=== PATIENT | female | born 1995 | race Two or more races ===

== ENCOUNTER 2017-04-29 10:42 | Inpatient (IN) | payer MEDICAID ==
[2017-04-29 11:15] LABS: AMNISURE (ROM) POSITIVE (NEGATIVE)
[2017-04-29 11:17] LABS: APPEARANCE,URINE CLOUDY; BILIRUBIN,URINE NEGATIVE (NEGATIVE); GLUCOSE, URINE NEGATIVE (NEGATIVE); KETONES,URINE NEGATIVE (NEGATIVE); LEUKOCYTE ESTERASE,URINE SMALL (NEGATIVE); NITRITE,URINE NEGATIVE (NEGATIVE); PROTEIN,URINE NEGATIVE (NEGATIVE); URINE SPECIFIC GRAVITY 1.008; UROBILINOGEN,URINE NEGATIVE mg/dL (<2.0)
[2017-04-29] MEDS ORDERED: RINGERS SOLUTION,LACTATED 300 ML IV ONE (11:29)
[2017-04-29] MEDS ORDERED: OXYTOCIN/NORMAL SALINE 20 UNIT/1,000 ML RTUINJ IV PRN ×2 (11:29→17:02)
[2017-04-29 11:57] LABS: ABSOLUTE LYMPHOCYTES (AUTO) 1.5 10^3/uL (0.5-4.7); ABSOLUTE MONOCYTES (AUTO) 0.4 10^3/uL (0.1-1.4); ABSOLUTE NEUT (AUTO) 5.1 10^3/uL (1.7-8.2); BASOPHILS % (AUTO) 0.3 % (0-2); EOSINOPHILS % (AUTO) 0.5 % (0-6); HEMATOCRIT 31.7 % (36.0-47.0); HEMOGLOBIN 10.9 g/dL (12.0-15.5); LYMPHOCYTES % (AUTO) 21.8 % (13-45); MEAN CORPUSCULAR HEMOGLOBIN 29.7 pg (27.0-33.4); MEAN CORPUSCULAR HGB CONC 34.2 g/dL (32.0-36.0); MEAN CORPUSCULAR VOLUME 87 fl (80-97); RED BLOOD COUNT 3.65 10^6/uL (3.72-5.28); RED CELL DISTRIBUTION WIDTH 13.5 % (11.5-14.0); SEGMENTED NEUTROPHILS % (AUTO) 72.4 % (42-78); WHITE BLOOD COUNT 7.1 10^3/uL (4.0-10.5)
[2017-04-29 11:58] LABS: URINE BARBITURATES SCREEN NEGATIVE; URINE METHADONE SCREEN NEGATIVE; URINE OPIATES LOW NEGATIVE; URINE PHENCYCLIDINE SCREEN NEGATIVE
[2017-04-29 12:11] LABS: ALANINE AMINOTRANSFERASE 35 U/L (5-35); ALKALINE PHOSPHATASE 382 U/L (50-135); ANION GAP 10 (5-19); ASPARTATE AMINO TRANSFERASE 36 U/L (5-30); BILIRUBIN,DIRECT 0.4 mg/dL (0.0-0.4); BILIRUBIN,TOTAL 0.8 mg/dL (0.2-1.3); BLOOD UREA NITROGEN 5 mg/dL (7-20); CALCIUM 9.4 mg/dL (8.4-10.2); CARBON DIOXIDE 23 mmol/L (22-30); CHLORIDE 104 mmol/L (98-107); CREATININE RESULT 0.56 mg/dL (0.52-1.25); GLUCOSE 81 mg/dL (75-110); POTASSIUM 3.6 mmol/L (3.6-5.0); SODIUM 136.7 mmol/L (137-145); TOTAL PROTEIN 7.7 g/dL (6.3-8.2); URIC ACID 5.6 mg/dL (2.5-6.2)
[2017-04-29] MEDS ORDERED: OXYTOCIN/NORMAL SALINE 20 UNIT/1,000 ML RTUINJ ONE (12:33)
[2017-04-29] MEDS ORDERED: BENZOIN/ALOE VERA/STORAX/TOLU TINCTURE 60 ML TP PRN (12:52)
[2017-04-29] MEDS ORDERED: BUPIVACAINE HCL 0.25 % INJ/PF (2.5 MG/1 ML) 30 ML VIAL INFIL ONE (12:52)
[2017-04-29] MEDS ORDERED: FENTANYL/BUPIVACAINE/NS/PF 200 MCG/100 ML RTUINJ EPI PRN (12:52)
[2017-04-29] MEDS ORDERED: BUPIVACAINE HCL 0.25 % INJ/PF (2.5 MG/1 ML) 30 ML VIAL ONE (12:57)
[2017-04-29] MEDS ORDERED: FENTANYL/BUPIVACAINE/NS/PF 200 MCG/100 ML RTUINJ EPI ONE (12:57)
[2017-04-29] MEDS ORDERED: EPHEDRINE SULFATE INJ 50 MG/1 ML AMPULE ONE (12:57)
[2017-04-29 13:21] LABS: URINE CREATININE 68.7 mg/dL (16-327); URINE PROTEIN 17.2 mg/dL (<12)
[2017-04-29] MEDS: RINGERS SOLUTION,LACTATED 1,000 ML IV PRN ×2 (13:21→17:46)
[2017-04-29] MEDS ORDERED: BENZOCAINE/MENTHOL AEROSOL SPRAY 56 ML TOP PRN (17:02)
[2017-04-29] MEDS ORDERED: ZOLPIDEM TARTRATE 5 MG TABLET PO PRN (17:02)
[2017-04-29] MEDS ORDERED: ACETAMINOPHEN WITH CODEINE #3 TABLET PO PRN (17:02)
[2017-04-29] MEDS ORDERED: DIPH/PERTUSS(ACELL)/TETANUS VAC/PF 0.5 ML SYR (>=10YO) IM PRN (17:02)
[2017-04-29] MEDS ORDERED: MEASLES,MUMPS&RUBELLA VACC/PF 0.5 ML VIAL SUBCUT PRN (17:02)
[2017-04-29] MEDS ORDERED: DIBUCAINE 1% OINTMENT 28 GM TP PRN (17:02)
[2017-04-29] MEDS: ACETAMINOPHEN WITH CODEINE #3 TABLET PO PRN (19:08)
[2017-04-29] MEDS ORDERED: ACETAMINOPHEN WITH CODEINE #3 TABLET ONE (19:09)
--- NOTE | 2017-04-29 19:38 | Delivery Summary ---
Del Sum A-C Datetime Report Generated by CPN: 04/29/2017 19:38 DELIVERY PERSONNEL DELIVERY PERSONNEL: [phone] Delivery Doctor:: Isabel Mai CNM Labor and Delivery Nurse:: Mary Pena RN Nursery Nurse:: Monica Redman RN Nursery Nurse:: Gayla Mishra RN Cleaner And Preparer/VOICE DATA COMMUNICATIONS ENGINEER: Georges Smith, VOICE DATA COMMUNICATIONS ENGINEER MATERNAL INFORMATION Delivery Anesthesia: Epidural Medications After Delivery: Pitocin Drip 20 Units/1000ml NSS Estimated Blood Loss (ml): 200 Maternal Complications: None Provider Comments: of viable female infant over intact perineum, head, shoulder, and body delivered without difficulty, with spontaneous cry and respirations, to maternal abdomen, cord clamped X 2 after to min delay, cut free pts , spontaneous delivery of placenta via barone mechanism, appears intact 3 VC. 1st degree bilateral perinuretherals as above using epidural anesethesia. Hemostasis acheived with external fundal massage and IV pitocin, mother and in stable condition, routine pp care LABOR SUMMARY EDC: 04/28/2017 00:00 No. Babies in Womb: 1 Attempted: No Labor Anesthesia: Epidural LABOR INFORMATION Reason for Induction: Not Applicable Onset of Labor: 04/29/2017 09:45 Complete Dilatation: 04/29/2017 15:44 Oxytocin: Augmentation Group B Beta Strep: negative Steroids Given: None Reason Steroids Not Administered: Not Applicable MEMBRANES Membranes Rupture Method: Spontaneous Rupture of Membranes: 04/29/2017 09:45 Length of Rupture (hr): 6.98 Amniotic Fluid Color: Clear Amniotic Fluid Amount: Small Amniotic Fluid Odor: Normal STAGES OF LABOR Stage 1 hr: 5 Stage 1 min: 59 Stage 2 hr: 1 Stage 2 min: 0 Stage 3 hr: 0 Stage 3 min: 5 Total Time in Labor hr: 7 Total Time in Labor min: 4 VAGINAL DELIVERY Episiotomy: None Laceration Extension: First Degree Laceration Type: Periurethral Laceration Repair: Yes Laceration Repair Note: bilateral periuretherals repaired with 3-0 chromic with 2 single sutures on each side, good hemostasis Sponge Count Correct: Yes Sharps Count Correct: Yes CSECTION DELIVERY Primary Indication: N/A Secondary Indication: N/A CSection Incidence: N/A Labor: N/A Elective: N/A CSection Incision: N/A BABY A INFORMATION Infant Delivery Date/Time: 04/29/2017 16:44 Method of Delivery: Vaginal Born in Route : No : N/A Forceps: N/A Vacuum Extraction: N/A Shoulder Dystocia : No PRESENTATION/POSITION BABY A Presentation: Cephalic Cephalic Presentation: Vertex Vertex Position: Right Occipital Anterior Breech Presentation: N/A PLACENTA INFORMATION BABY A Placenta Delivery Time : 04/29/2017 16:49 Placenta Method of Delivery: Spontaneous Placenta Status: Delivered SCORES BABY A Heart Rate 1 min: >100 bpm Resp Effort 1 min: Good Cry Reflex Irritability 1 min: Cough or Sneeze or Pulls Away Muscle Tone 1 min: Active Motion Color 1 min: Body [place], Extremities Blue Resuscitation Effort 1 min: Tactile Stimulation SCORE 1 MIN: 9 Heart Rate 5 min: >100 bpm Resp Effort 5 min: Good Cry Reflex Irritability 5 min: Cough or Sneeze or Pulls Away Muscle Tone 5 min: Active Motion Color 5 min: Body [place], Extremities Blue Resuscitation Effort 5 min: N/A SCORE 5 MIN: 9 INFANT INFORMATION BABY A Gestational Age at Delivery: 40.1 Gestational Status: Full Term- 39- 40.6 Weeks Infant Outcome : Liveborn Infant Condition : Stable Infant Sex: Female IDENTIFICATION BABY A Verification Date/Time: 04/29/2017 16:51 ID Band Number: [id number] Mother's Name Verified: Yes RN Verifying : K David RNC/C Chaz RN WEIGHT/LENGTH BABY A Birthweight (gm): 3240 Infant Weight (lb): 7 Weight (oz): 2 Infant Length (in): 20.00 Length (cm): 50.80 CORD INFORMATION BABY A No. Cord Vessels: 3 Nuchal Cord : N/A Cord Blood Taken: Yes-For Storage (Mom's Blood type +) Infant Suction: Mouth ASSESSMENT BABY A Complications: None Physical Findings at Delivery: Within Normal Limits Respirations: Appears Normal Skin to Skin: Yes Skin to Skin Time (min): 90 Crutching Contractor/ALS Called : No Infant Care By: Joe Redman RN/Gayla Mishra RN Transferred To: Remains with Mother BABY B INFORMATION : N/A SIGNATURES Assignment: Neda Agosto MD Signature: with User ID: [email or web address] : with User ID: [email or web address]
[2017-04-29 20:31] LABS: ADD HIVPANEL? NO; HIV (1 AND 2) ANTIBODY NEGATIVE (NEGATIVE)
--- NOTE | 2017-04-29 21:41 | Admission Physical ---
Datetime Report Generated by CPN: 04/29/2017 21:41 CURRENT ADMISSION Hx Assessment: The History has been Reviewed and is Current Chief Complaint: Uterine Contractions; Suspected Ruptured Membranes Indication for Induction: Not Applicable Admit Plan: Admit to Unit; Initiate Labor Induction Protocol ALLERGIES Medication Allergies: No Medication Allergies: No Known Allergies (04/29/2017) Latex: No Latex Allergies Food Allergies: na Environmental Allergies: na OBSTETRICAL HISTORY EDC: 04/28/2017 00:00 : 1 Para: 0 Term: 0 : 0 SAB: 0 IAB: 0 Ectopic: 0 Livin Cesareans: 0 VBACs: 0 Multiple Births: 0 Gestational Diabetes: No Rh Sensitization: No Incompetent Cervix: No NAHUM: No Infertility: No ART Treatment: No Uterine Anomaly: No IUGR: No Hx Previous C/S: No Macrosomia: No Hx Loss/Stillborn: No PIH: No Hx : No Placenta Previa/Abruption: No Depression/PP Depression: No PTL/PROM: No Post Hemorrhage: No Current Procedures: Ultrasound Obstetrical History Comments: G1-current SEE RECORDS Alcohol: No Marijuana : No Cocaine: No Other Illicit Drugs: No Cigarettes: Never Smoker. [id number] MEDICAL HISTORY Diabetes: No Blood Transfusion: No Pulmonary Disease (Asthma, TB): No Breast Disease: No Hypertension: No Project Inspector Surgery: No Heart Disease: No Hosp/Surgery: No Autoimmune Disorder: No Anesthetic Complications: No Kidney Disease: No Abnormal Pap Smear: No Neuro/Epilepsy: No Psychiatric Disorders: No Other Medical Diseases: No Hepatitis/Liver Disease: No Significant Family History: No Varicosities/Phlebitis: No Trauma/Violence : No Thyroid Dysfunction: No INFECTIOUS HISTORY Gonorrhea: No Genital Herpes: No Chlamydia: No Tuberculosis: No Syphilis: No Hepatitis: No HIV/AIDS Exposure: No Rash or Viral Illness: No HPV: No PHYSICAL EXAM General: Normal HEENT: Normal Neurologic: Normal Thyroid: Normal Heart: Normal Lungs: Normal Breast: Normal Back: Normal Abdomen: Normal Genitourinary Exam: Normal Extremities: Normal DTRs: Normal Pelvic Type: Adequate Vital Signs: Reviewed Details Vital Signs: slightly elevated VAGINAL EXAM Dilatation: 3 Effacement: 90 Station: 0 Contraction Comments: 6-7 min MEMBRANES Membranes: Ruptured Amniotic Fluid Color: Clear FETUS A EGA: 40.1 Monitoring: External US FHR- Baseline: 125 Variability: Moderate 6-25bpm Decelerations: None FHR Category: Category I Estimated Weight (gm): 3300 Presentation: Vertex Admit Comment: SROM this morning, clear. active baby, denies bleeding, irreg. ctx. Pt with care at [facility], uncomplicated , no medical hx. no surgical hx NKDA Pt states gbs negative Records requested Admit to L _ D Plan for edwards bulb and pitocin PLANS FOR LABOR AND DELIVERY Labor and Delivery: None Pain Management: Epidural Feeding Preference: Breast Benefit of Breast Feed Discussed: Yes Circumcision: N/A INFORMED CONSENT Assignment: Neda Agosto MD Signature: with User ID: [email or web address] : with User ID: [email or web address]
[2017-04-29] MEDS: IBUPROFEN 800 MG TABLET PO SCH (22:22)
[2017-04-29] MEDS: FERROUS SULFATE 325 MG TABLET PO SCH (22:23)
[2017-04-29] MEDS: DOCUSATE SODIUM 100 MG CAPSULE PO SCH (22:23)
[2017-04-30] MEDS: IBUPROFEN 800 MG TABLET PO SCH ×3 (06:03→21:14)
[2017-04-30 07:49] LABS: HEMATOCRIT 26.8 % (36.0-47.0); HEMOGLOBIN 9.2 g/dL (12.0-15.5); HGB HCT DIFFERENCE 0.8; MEAN CORPUSCULAR HEMOGLOBIN 29.7 pg (27.0-33.4); MEAN CORPUSCULAR HGB CONC 34.5 g/dL (32.0-36.0); MEAN CORPUSCULAR VOLUME 86 fl (80-97); RED BLOOD COUNT 3.12 10^6/uL (3.72-5.28); RED CELL DISTRIBUTION WIDTH 13.9 % (11.5-14.0); WHITE BLOOD COUNT 12.6 10^3/uL (4.0-10.5)
[2017-04-30 08:28] LABS: CHLAM PCR NOT DETECTED (NOT DETECT)
--- NOTE | 2017-04-30 10:11 | PDOC PROGRESS REPORT ---
Subjective-OB Subjective: Post Delivery Day: 1 21 year old. Denies any needs at this time, is tired, voiding without difficulty, lochia is stable, pain well controlled. Physical Exam (OB) Vital Signs: Temp Pulse Resp BP Pulse Ox 97.5 F 60 14 114/67 100 04/30/17 07:41 04/30/17 07:41 04/30/17 07:41 04/30/17 07:41 04/30/17 07:41 Intake & Output 04/29/17 04/30/17 05/01/17 06:59 06:59 06:59 Intake Total 350 Balance 350 Weight 62 kg - Lochia Lochia Amount: Small 10-25 ml Lochia Color: Rubra/Red - Abdomen Description: Tender, Soft Hernia Present: No Fundal Description: Firm, Midline Fundal Height: u/u - u/2 Objective-Diagnostic Laboratory: 04/30/17 07:16 04/29/17 11:35 04/29/17 04/29/17 04/29/17 10:48 11:35 11:35 WBC 7.1 RBC 3.65 L Hgb 10.9 L Hct 31.7 L MCV 87 MCH 29.7 MCHC 34.2 RDW 13.5 Plt Count 212 Seg Neutrophils % 72.4 Lymphocytes % 21.8 Monocytes % 5.0 Eosinophils % 0.5 Basophils % 0.3 Absolute Neutrophils 5.1 Absolute Lymphocytes 1.5 Absolute Monocytes 0.4 Absolute Eosinophils 0.0 Absolute Basophils 0.0 Sodium Potassium Chloride Carbon Dioxide Anion Gap BUN Creatinine Est GFR ( Amer) Est GFR (Non-Af Amer) Glucose Uric Acid Calcium Total Bilirubin AST ALT Alkaline Phosphatase Total Protein Albumin Urine Color YELLOW Urine Appearance CLOUDY Urine pH 6.0 Ur Specific [place] 1.008 Urine Protein NEGATIVE Urine Glucose (UA) NEGATIVE Urine Ketones NEGATIVE Urine Blood LARGE H Urine Nitrite NEGATIVE Ur Leukocyte Esterase SMALL H Blood Type A POSITIVE Antibody Screen NEGATIVE 04/29/17 04/30/17 11:35 07:16 WBC 12.6 H RBC 3.12 L Hgb 9.2 L Hct 26.8 L MCV 86 MCH 29.7 MCHC 34.5 RDW 13.9 Plt Count 194 Seg Neutrophils % Lymphocytes % Monocytes % Eosinophils % Basophils % Absolute Neutrophils Absolute Lymphocytes Absolute Monocytes Absolute Eosinophils Absolute Basophils Sodium 136.7 L Potassium 3.6 Chloride 104 Carbon Dioxide 23 Anion Gap 10 BUN 5 L Creatinine 0.56 Est GFR ( Amer) > 60 Est GFR (Non-Af Amer) > 60 Glucose 81 Uric Acid 5.6 Calcium 9.4 Total Bilirubin 0.8 AST 36 H ALT 35 Alkaline Phosphatase 382 H Total Protein 7.7 Albumin 4.0 Urine Color Urine Appearance Urine pH Ur Specific [place] Urine Protein Urine Glucose (UA) Urine Ketones Urine Blood Urine Nitrite Ur Leukocyte Esterase Blood Type Antibody Screen Assessment and Plan(PN) - Assessment and Plan (1) Spontaneous vaginal delivery Is this a current diagnosis for this admission?: Yes Plan: routine pp care labs as chart is unavailable - Time Spent with Patient Time with patient: Less than 15 minutes Critical Time spent with patient: Less than 15 minutes Medications reviewed and adjusted accordingly: Yes - Disposition Anticipated Discharge: Home Within: within 24 hours
[2017-04-30] MEDS: SENNOSIDES/DOCUSATE 8.6-50 MG 1 EACH TABLET PO SCH (10:18)
[2017-04-30] MEDS: PRENATAL VITAMIN W-O CA NO5/FE FUMARATE/FA CAPSULE PO SCH (10:18)
[2017-04-30] MEDS: DOCUSATE SODIUM 100 MG CAPSULE PO SCH ×2 (10:18→17:21)
[2017-04-30] MEDS: FERROUS SULFATE 325 MG TABLET PO SCH ×2 (10:18→17:21)
[2017-04-30] MEDS: ACETAMINOPHEN WITH CODEINE #3 TABLET PO PRN (15:38)
[2017-05-01] MEDS: IBUPROFEN 800 MG TABLET PO SCH (05:13)
[2017-05-01 07:38] LABS: HEPATITIS C VIRUS AB <0.1 s/co ratio (0.0-0.9)
[2017-05-01] MEDS: PRENATAL VITAMIN W-O CA NO5/FE FUMARATE/FA CAPSULE PO SCH (09:54)
[2017-05-01] MEDS: FERROUS SULFATE 325 MG TABLET PO SCH (09:54)
[2017-05-01] MEDS: SENNOSIDES/DOCUSATE 8.6-50 MG 1 EACH TABLET PO SCH (09:55)
[2017-05-01] MEDS: DOCUSATE SODIUM 100 MG CAPSULE PO SCH (09:55)
--- NOTE | 2017-05-01 11:31 | PDOC DISCHARGE SUMMARY ---
Final Diagnosis Discharge Date: 05/01/17 - Final Diagnosis (1) Spontaneous vaginal delivery Is this a current diagnosis for this admission?: Yes Discharge Data - Discharge Medication Home Medications: Vit No.78/Iron/FA [Prenatabs FA Tablet] 1 each PO DAILY 04/29/17 Docusate Sodium [Colace 100 mg Capsule] 100 mg PO BID #60 capsule 05/01/17 Ferrous Sulfate [Feosol 325 mg Tablet] 325 mg PO BID #60 tablet 05/01/17 Ibuprofen [Motrin 800 mg Tablet] 800 mg PO Q8 #60 tablet 05/01/17 Gestational Age: 40.1 Reason(s) for Admission: Onset of Labor Procedures: NST Intrapartum Procedure(s): Spontaneous Vaginal Delivery Complication(s): Laceration-Perineal Laceration-Degree: 1st - Data Baby 1 Female at 1 minute: 9 at 5 minutes: 9 Weight: 3.232 kg Home with Mother: Yes Complications: No - Diagnosis Test Laboratory: Temp Pulse Resp BP Pulse Ox 97.6 F 61 16 119/73 99 05/01/17 07:30 05/01/17 07:30 05/01/17 07:30 05/01/17 07:30 05/01/17 07:30 04/29/17 04/29/17 04/30/17 10:48 11:35 07:16 RBC 3.65 L 3.12 L Hgb 10.9 L 9.2 L Hct 31.7 L 26.8 L Urine Opiates Screen NEGATIVE - Discharge information/Instructions Discharge Activity: Activity As Tolerated, Pelvic Rest, No tub bath Discharge Diet: Regular Disposition: HOME, SELF-CARE Follow up with: [facility] in: 1, Weeks - bp check
[2017-05-01 11:38] VITALS: BP 103/65
== END 2017-05-01 13:38 | disposition home or self-care (01) | DRG 775 ==
LOC: LC 10:42 → LR 11:22 → 2S 21:37
PROVIDERS: ADMIT Student in an Organized Health Care Education/Training Program; ATTEND Student in an Organized Health Care Education/Training Program
PROC: 10E0XZZ Delivery of Products of Conception, External Approach (ICD-10-PCS; principal; 2017-04-29)
PROC: 0UQMXZZ Repair Vulva, External Approach (ICD-10-PCS; 2017-04-29)
PROC: 4A1HXCZ Monitoring of Products of Conception, Cardiac Rate, External Approach (ICD-10-PCS; 2017-04-29)
DX: O71.82 Other specified trauma to perineum and vulva (principal); Z3A.40 40 weeks gestation of pregnancy; Z37.0 Single live birth
CPT/HCPCS: 36415; 59025; 80053; 80307; 81005; 82570; 84112; 84156; 84550; 85025; 85027; 86592; 86701; 86762; 86803; 86804; 86850; 86900; 86901; 87491; 87591; J2590; J3490

== ENCOUNTER 2017-08-30 17:22 | Emergency (ER) | payer MEDICAID ==
[2017-08-30] MEDS ORDERED: NORMAL SALINE 1000 ML 1,000 ML IV ONE (19:03)
[2017-08-30] MEDS ORDERED: ONDANSETRON HCL INJ/PF 4 MG/2 ML SDV IV ONE (19:04)
[2017-08-30 19:19] LABS: ALANINE AMINOTRANSFERASE 23 U/L (5-35); ALBUMIN 5.1 g/dL (3.7-5.6); ALKALINE PHOSPHATASE 85 U/L (50-135); ANION GAP 16 (5-19); ASPARTATE AMINO TRANSFERASE 22 U/L (5-30); BILIRUBIN,DIRECT 0.3 mg/dL (0.0-0.4); BILIRUBIN,TOTAL 2.1 mg/dL (0.2-1.3); BLOOD UREA NITROGEN 14 mg/dL (7-20); CALCIUM 9.8 mg/dL (8.4-10.2); CARBON DIOXIDE 24 mmol/L (22-30); CHLORIDE 101 mmol/L (98-107); CREATININE RESULT 0.57 mg/dL (0.52-1.25); GLUCOSE 86 mg/dL (75-110); LIPASE 99.9 U/L (23-300); POTASSIUM 3.5 mmol/L (3.6-5.0); SODIUM 141.4 mmol/L (137-145); TOTAL PROTEIN 8.4 g/dL (6.3-8.2)
[2017-08-30] MEDS ORDERED: ONDANSETRON ODT 4 MG TAB (6 TAB/DSPK) PO PRN (19:48)
--- NOTE | 2017-08-30 19:48 | ER Document Report ---
ED General - General Chief Complaint: Nausea/Vomiting/Diarrhea Stated Complaint: VOMITING,CHILLS,DIARRHEA,HEADACHE Time Seen by Provider: 08/30/17 18:27 Notes: Patient is a 21-year-old female without past medical history who presents with approximately 12 hours of nausea, vomiting and diarrhea. She also notes an associated generalized abdominal cramping. Symptoms started abruptly this morning and have been overall unchanged since onset. Nothing improves or worsens her symptoms. She is uncertain if there have been any sick contacts. She denies a history of similar symptoms in the past. She has not seen a primary doctor regarding today's concerns. She denies any syncope. No vaginal bleeding or discharge. No headache, neck pain, cough, sputum production or shortness of breath. TRAVEL OUTSIDE OF THE [place] IN LAST 30 DAYS: No - Related Data Allergies/Adverse Reactions: No Known Allergies Allergy (Verified 08/30/17 17:23) Past Medical History - General Information source: Patient - Social History Smoking Status: Never Smoker Chew tobacco use (# tins/day): No Frequency of alcohol use: None Drug Abuse: None Lives with: Spouse/Significant other Family History: Reviewed & Not Pertinent Patient has suicidal ideation: No Patient has homicidal ideation: No Renal/ Medical History: Denies: Hx Peritoneal Dialysis Review of Systems - Review of Systems Notes: Constitutional: Negative for fever. HENT: Negative for sore throat. Eyes: Negative for visual changes. Cardiovascular: Negative for chest pain. Respiratory: Negative for shortness of breath. Gastrointestinal: Positive for abdominal cramping, vomiting and diarrhea Genitourinary: Negative for dysuria. Musculoskeletal: Negative for back pain. Skin: Negative for rash. Neurological: Negative for headaches, weakness or numbness. 10 point ROS negative except as marked above and in HPI. Physical Exam - Vital signs Vitals: Temp Pulse BP Pulse Ox 98.3 F 101 H 98/61 L 100 08/30/17 17:42 08/30/17 17:42 08/30/17 17:42 08/30/17 17:42 Interpretation: Normal Notes: PHYSICAL EXAMINATION: GENERAL: Well-appearing, well-nourished and in no acute distress. HEAD: Atraumatic, normocephalic. EYES: Pupils equal round and reactive to light, extraocular movements intact, sclera anicteric, conjunctiva are normal. ENT: nares patent, oropharynx clear without exudates. Moist mucous membranes. NECK: Normal range of motion, supple without lymphadenopathy LUNGS: Breath sounds clear to auscultation bilaterally and equal. No wheezes rales or rhonchi. HEART: Regular rate and rhythm without murmurs ABDOMEN: Soft, nontender, normoactive bowel sounds. No guarding, no rebound. No masses appreciated. EXTREMITIES: Normal range of motion, no pitting or edema. No cyanosis. NEUROLOGICAL: No focal neurological deficits. Moves all extremities spontaneously and on command. PSYCH: Normal mood, normal affect. SKIN: Warm, Dry, normal turgor, no rashes or lesions noted. Course - Re-evaluation Re-evalutation: 08/30/17 19:46 Presentation of an overall well-appearing patient in no acute distress with complaints of nausea, vomiting, diarrhea. This is consistent with likely viral gastroenteritis. Patient has no abdominal tenderness on exam and specifically no tenderness in the RLQ, LLQ, RUQ. Overall well hydrated on exam. Able to tolerate oral intake here in the emergency department. Low clinical suspicion for any acute life-threatening etiology based on exam and history including acute cholecystitis, SBO, appendicitis, nephrolithiasis, or pylonephritis. CMP without evidence of acute hepatitis or significant dehydration. Will plan for discharge at this time with return precautions and followup recommendations. - Vital Signs Vital signs: Temp Pulse Resp BP Pulse Ox 98.5 F 88 18 110/87 H 98 08/30/17 20:10 08/30/17 20:10 08/30/17 20:10 08/30/17 20:10 08/30/17 20:10 - Laboratory Result Diagrams: 08/30/17 18:10 Laboratory results interpreted by me: 08/30/17 18:10 Potassium 3.5 L Total Bilirubin 2.1 H Total Protein 8.4 H Discharge - Discharge Clinical Impression: Vomiting and diarrhea, Abdominal cramping Condition: Good Disposition: HOME, SELF-CARE Additional Instructions: Your symptoms are likely due to a viral illness and should resolve in the next several days. You can take [id number] loperamide also known as Imodium as needed for diarrhea per box instructions. Continue to stay hydrated with plenty of solution such as Gatorade or Pedialyte. You are being prescribed Zofran to take as needed for nausea and vomiting. Please return if you develop severe abdominal pain, pass out, become unable to tolerate any oral fluids for 12 more hours, or any other symptoms that are concerning to you.
[2017-08-30 20:10] VITALS: BP 110/87
== END 2017-08-30 20:10 | disposition home or self-care (01) ==
LOC: ER 17:22
DX: R11.2 Nausea with vomiting, unspecified (principal); R19.7 Diarrhea, unspecified; R10.84 Generalized abdominal pain
CPT/HCPCS: 99284; 96361; 96374; 36415; 83690; 84703; 80053; J2405; J7030

== ENCOUNTER 2018-06-18 10:37 | Emergency (ER) | payer SELFPAY ==
--- NOTE | 2018-06-18 10:58 | ER Document Report ---
ED Medical Screen (RME) - General Chief Complaint: Vag Bleeding, +preg <12wks Stated Complaint: PELVIC PAIN/BLEEDING Time Seen by Provider: 06/18/18 10:46 Mode of Arrival: Ambulatory Information source: Patient Notes: 22-year-old female at approximately 11 weeks gestation per last menstrual period which was April 02, 2018 resents with complaints of vaginal bleeding. Patient states that she had a positive home test 1 week prior to arrival. She states that she began spotting 3 days ago. I have greeted and performed a rapid initial assessment of this patient. A comprehensive ED assessment and evaluation of the patient, analysis of test results and completion of medical decision making process we will be contacted by additional ED providers. PHYSICAL EXAMINATION: Vital signs reviewed- GENERAL: Well-appearing, well-nourished and in no acute distress. LUNGS: No respiratory distress Musculoskeletal: Normal range of motion NEUROLOGICAL: Normal speech, normal gait. PSYCH: Normal mood, normal affect. SKIN: Warm, Dry, normal turgor, no rashes or lesions noted. TRAVEL OUTSIDE OF THE [place] IN LAST 30 DAYS: No - HPI Onset: Other Onset/Duration: Gradual Associated Symptoms: Vaginal bleeding Exacerbated by: Denies Relieved by: Denies Similar symptoms previously: No Recently seen / treated by doctor: No - Related Data Smoking: Non-smoker Frequency of alcohol use: None Drug Abuse: None Allergies/Adverse Reactions: No Known Allergies Allergy (Verified 08/30/17 17:23) Past Medical History Renal/ Medical History: Denies: Hx Peritoneal Dialysis Physical Exam - Vital signs Vitals: Temp Pulse Resp BP Pulse Ox 98.1 F 73 14 102/59 L 100 06/18/18 10:41 06/18/18 10:41 06/18/18 10:41 06/18/18 10:41 06/18/18 10:41 Course - Vital Signs Vital signs: Temp Pulse Resp BP Pulse Ox 98.1 F 73 14 102/59 L 100 06/18/18 10:41 06/18/18 10:41 06/18/18 10:41 06/18/18 10:41 06/18/18 10:41
[2018-06-18 11:28] LABS: APPEARANCE,URINE SLIGHTLY-CLOUDY; BILIRUBIN,URINE NEGATIVE (NEGATIVE); COLOR,URINE YELLOW; GLUCOSE, URINE NEGATIVE (NEGATIVE); KETONES,URINE NEGATIVE (NEGATIVE); LEUKOCYTE ESTERASE,URINE NEGATIVE (NEGATIVE); NITRITE,URINE NEGATIVE (NEGATIVE); PROTEIN,URINE 30 mg/dL (NEGATIVE); URINE SPECIFIC GRAVITY 1.026
--- NOTE | 2018-06-18 11:37 | ER Document Report ---
ED GI/ - General Chief Complaint: Vag Bleeding, +preg <12wks Stated Complaint: PELVIC PAIN/BLEEDING Time Seen by Provider: 06/18/18 10:46 Mode of Arrival: Ambulatory Notes: Patient is with vaginal bleeding. She says that her last menstrual cycle was April 02. G2, P1, A0. She started having some spotting about 3 days ago and has had some intermittent cramping. She had heavy bleeding last night, but has not passed any clots. Has not passed anything that looked like tissue. Patient is scheduled to have an on the of this month in [place]. TRAVEL OUTSIDE OF THE [place] IN LAST 30 DAYS: No - Related Data Allergies/Adverse Reactions: No Known Allergies Allergy (Verified 08/30/17 17:23) Past Medical History - General Information source: Patient Last Menstrual Period: April 02 - Social History Smoking Status: Unknown if Ever Smoked Frequency of alcohol use: None Drug Abuse: None Family History: Reviewed & Not Pertinent Patient has suicidal ideation: No Patient has homicidal ideation: No Review of Systems - Review of Systems Notes: REVIEW OF SYSTEMS: CONSTITUTIONAL : Denies fever. EENT: Denies eye, ear, nose or mouth or throat pain or other symptoms. CARDIOVASCULAR: Denies chest pain. RESPIRATORY: Denies cough, chest congestion, or shortness of breath. GASTROINTESTINAL: Denies abdominal pain or nausea, vomiting, or diarrhea. GENITOURINARY: Denies difficulty or painful urinating, urinary frequency, blood in urine. See HPI. MUSCULOSKELETAL: Denies back or neck pain. Denies joint pain or swelling. SKIN: Denies rash or skin lesions. NEUROLOGICAL: Denies LOC or altered mental status. Denies headache. Denies sensory loss or motor deficits. ALL OTHER SYSTEMS REVIEWED AND NEGATIVE. Physical Exam - Vital signs Vitals: Temp Pulse Resp BP Pulse Ox 98.1 F 73 14 102/59 L 100 06/18/18 10:41 06/18/18 10:41 06/18/18 10:41 06/18/18 10:41 06/18/18 10:41 Interpretation: Normal - Notes Notes: PHYSICAL EXAMINATION: GENERAL: Well-appearing, in no acute distress. HEAD: Atraumatic, normocephalic. NECK: Normal range of motion, supple. LUNGS: Breath sounds clear and equal bilaterally. HEART: Regular rate and rhythm without murmurs. ABDOMEN: Soft, nontender. Only minimal discomfort to press in the midline suprapubic region. No guarding or rebound. No masses. BACK: No tenderness throughout entire back. EXTREMITIES: Normal range of motion without pain. NEUROLOGICAL: Normal speech, normal gait. Normal sensory, motor, and reflex exams. Awake, alert, and oriented x3. Cranial nerves normal. SKIN: Warm, dry, no rashes. Course - Vital Signs Vital signs: Temp Pulse Resp BP Pulse Ox 98.5 F 74 16 98/58 L 100 06/18/18 13:14 06/18/18 13:14 06/18/18 13:14 06/18/18 13:14 06/18/18 13:14 - Laboratory Laboratory results interpreted by me: 06/18/18 06/18/18 11:02 11:02 Beta HCG, Quant 78785.00 H Urine Protein 30 H Urine Blood MODERATE H Urine Urobilinogen 2.0 H Urine HCG, Qual POSITIVE H - Diagnostic Test Radiology reviewed: Image reviewed, Reports reviewed - Ultrasound showed a 6- week, 2-day living fetus with a heartbeat of 104. Discharge - Discharge Clinical Impression: Threatened , Ovarian cyst, Vaginal bleeding during Condition: Stable Disposition: HOME, SELF-CARE Additional Instructions: : You are . care is best started as early in as possible. If you're unsure about continuing this , you should discuss this with your physician or with fluoroscope operator at [facility]. You should take only medications approved by your physician. Acetaminophen can safely be taken for minor pains. As a rule, medication for chronic conditions such as asthma or seizures can safely be continued. You should discuss with the physician every medicine you take. Any regular exercise program can be continued. Talk to your physician, however, before engaging in competitive or demanding sports. Alcohol, smoking, and "street drugs" are dangerous to your baby. Cocaine is especially dangerous. Don't use any illicit drugs! BLEEDING DURING EARLY : You have been evaluated for passing blood while . While we take this symptom very seriously, most women with your degree of bleeding will go on to have a perfectly normal baby. At this time, there is no indication that a miscarriage will occur. (A miscarriage occurs when the fetus is abnormal. There is no medicine or treatment to prevent it.) A more serious cause of bleeding is tubal (or ectopic) . An ultrasound usually can show whether the is in the uterus or in the tube. Sometimes in early , no fetus is seen. In this case, careful follow-up, including repeat blood tests and repeat ultrasound, is necessary. Do not douche or have sex for at least a week, or until OK'd by the doctor. Don't use tampons. Call the doctor or return for re-examination if there is an increase in bleeding or cramping, extreme weakness, fainting, new abdominal pain, fever, or passage of tissue. THREATENED MISCARRIAGE: You have been evaluated for a possible miscarriage. At this time, there is no indication that a miscarriage will occur. Most women with your symptoms will go on to have a perfectly normal baby. However, careful observation will be necessary. A miscarriage occurs when the fetus is abnormal. There is no medicine or treatment for it. You should rest in bed until the symptoms have resolved. Do not douche or have sex for at least a week, or until OK'd by the doctor. Call the doctor or return for re-examination if there is an increase in bleeding or cramping, or passage of tissue. FOLLOW-UP CARE: If you have been referred to a physician for follow-up care, call the physician s office for an appointment as you were instructed or within the next two days. If you experience worsening or a significant change in your symptoms (very heavy bleeding with large clots of blood, passage of tissue, more severe abdominal / pelvic pain or cramping, feeling faint or severe weakness, fever, etc.), notify the physician immediately or return to the Emergency Department at any time for re-evaluation. OBSTETRIC-GYNECOLOGIC (OB-RN HEMATOLOGY) PHYSICIANS IN [place]: [facility] [address] [place] [address] [phone] Your ultrasound showed a living 6-week, 2-day gestation fetus with heartbeat of 104. Return if you have new or worsening symptoms. Follow-up with your F[employer] SOFTWARE DEVELOPER. Referrals: HUNG BELL MD [ACTIVE STAFF] - Follow up as needed
[2018-06-18] MEDS ORDERED: ONDANSETRON 4 MG TAB.RAPDIS PO ONE (11:53)
--- NOTE | 2018-06-18 12:36 | RADIOLOGY REPORT (SQ) ---
EXAM DESCRIPTION: U/S OB TRANSVAG W/DOPPLER COMPLETED DATE/TIME: 06/18/2018 12:20 pm REASON FOR STUDY: Pelvic cramping and spotting for 3 days, LMP 04/02/2018 COMPARISON: None. TECHNIQUE: Transvaginal static and realtime grayscale images acquired of the pelvis. Additional [place] cted spectral and color Doppler images recorded. All images stored on PACs. [facility] [place] CLINICAL DATES: 11 weeks 0 days LIMITATIONS: None. FINDINGS: FETUS: Single Living intrauterine . ULTRASOUND EGA: 6 weeks 2 days ULTRASOUND CHAI: 02/09/2018 EFW: Not applicable less than 20 weeks CRL: 3 mm FHR: 104 beats per minute. SURVEY: No visualized anomalies AMNIOTIC FLUID: Adequate amount PLACENTA: Not yet developed due to early gestation SUBCHORIONIC BLEED: No. SIZE OF BLEED: Not applicable. UTERUS: No masses. No anomalies. CERVICAL LENGTH: 3.3 cm Closed. RIGHT ADNEXA: Normal flow. Thick walled complex cyst measuring 1.9 x 1.3 x 1.5 cm with peripheral va scularity. No adnexal free fluid. LEFT ADNEXA: Normal ovary with normal vascular flow. No adnexal free fluid. No adnexal masses. FREE FLUID: None. OTHER: No other significant finding. IMPRESSION: 1. Single live intrauterine gestation measuring 6 weeks 2 days. Estimated date of delivery 02/09/2018 . 2. Complex right ovarian cyst, likely representing a corpus luteum cyst. Trimester of : First - 0 to 13 weeks. TECHNICAL DOCUMENTATION: JOB ID: [id number] [employer]- All Rights Reserved Reading location - IP/workstation name: [email or web address]
[2018-06-18 13:16] VITALS: BP 98/58
== END 2018-06-18 13:24 | disposition home or self-care (01) ==
LOC: ER 10:37
DX: O20.0 Threatened abortion (principal); O20.9 Hemorrhage in early pregnancy, unspecified; O34.81 Maternal care for other abnormalities of pelvic organs, first trimester; N83.201 Unspecified ovarian cyst, right side; Z3A.01 Less than 8 weeks gestation of pregnancy
CPT/HCPCS: 99284; 86900; 86901; 36415; 84702; 81025; 81001; 76817; 93976; S0119

== ENCOUNTER 2019-03-20 19:58 | Emergency (ER) | payer SELFPAY ==
[2019-03-20] MEDS ORDERED: NORMAL SALINE 1000 ML 1,000 ML IV ONE ×2 (20:50→23:08)
[2019-03-20] MEDS ORDERED: PROCHLORPERAZINE EDISYLATE INJ 10 MG/2 ML VIAL IV ONE (20:50)
--- NOTE | 2019-03-20 20:53 | ER Document Report ---
ED Medical Screen (RME) - General Chief Complaint: Vomiting Stated Complaint: VOMITING Time Seen by Provider: 03/20/19 20:48 Mode of Arrival: Ambulatory Information source: Patient Notes: Patient presents G2, P1 about 6 weeks . Patient has not had an ultrasound to confirm the yet. Patient states she did have pelvic cramping yesterday that has resolved now. Patient also complains of headache pain. Patient reports nausea and vomiting for the past week with 6 episodes today. I have greeted and performed a rapid initial assessment of this patient. A comprehensive ED assessment and evaluation of the patient, analysis of test results and completion of the medical decision making process will be conducted by additional ED providers. TRAVEL OUTSIDE OF THE [place] IN LAST 30 DAYS: No - Related Data Allergies/Adverse Reactions: No Known Allergies Allergy (Verified 03/20/19 20:18) Past Medical History - Social History Frequency of alcohol use: None Drug Abuse: None Renal/ Medical History: Denies: Hx Peritoneal Dialysis Physical Exam - Vital signs Vitals: Temp Pulse Resp BP Pulse Ox 98.4 F 72 16 119/68 100 03/20/19 20:23 03/20/19 20:23 03/20/19 20:23 03/20/19 20:23 03/20/19 20:23 - General General appearance: Appears well, Alert Notes: Abdomen nontender Course - Vital Signs Vital signs: Temp Pulse Resp BP Pulse Ox 98.4 F 72 16 119/68 100 03/20/19 20:23 03/20/19 20:23 03/20/19 20:23 03/20/19 20:23 03/20/19 20:23
[2019-03-20] MEDS: DIPHENHYDRAMINE HCL 50 MG/ML VIAL IV ONE ×3 (21:38→23:17)
[2019-03-20 21:52] LABS: APPEARANCE,URINE SLIGHTLY-CLOUDY; BILIRUBIN,URINE NEGATIVE (NEGATIVE); COLOR,URINE YELLOW; GLUCOSE, URINE NEGATIVE (NEGATIVE); KETONES,URINE 80 mg/dL (NEGATIVE); LEUKOCYTE ESTERASE,URINE TRACE (NEGATIVE); NITRITE,URINE NEGATIVE (NEGATIVE); PROTEIN,URINE NEGATIVE (NEGATIVE); URINE SPECIFIC GRAVITY 1.024; UROBILINOGEN,URINE NEGATIVE mg/dL (<2.0)
--- NOTE | 2019-03-20 23:04 | RADIOLOGY REPORT (SQ) ---
EXAM DESCRIPTION: US TRANSVAGINAL COMPLETED DATE/TME: 03/20/2019 20:50 CLINICAL HISTORY: 23 years Female pelvic pain COMPARISON: None. TECHNIQUE: Transvaginal duplex imaging performed to evaluate the pelvis. FINDINGS: Retroverted uterus. Right ovary measures 1.8 x 3.8 cm with normal blood flow. Left ovary measures 2.6 x 1.4 cm normal blood flow. Intrauterine gestational sac with a small amount of subchorionic hemorrhage. Yolk sac and pole are identified. [place]-rump length 3 mm. No heart tones are identified. This may be secondary to early gestational age. Cervical length 3 cm. IMPRESSION: Intrauterine corresponding to six weeks two days. No heart tones are noted. Findings are consistent with of uncertain viability. Recommend follow-up in one week Small amount of subchorionic hemorrhage
--- NOTE | 2019-03-20 23:15 | ER Document Report ---
ED GI/ - General Chief Complaint: Vomiting Stated Complaint: VOMITING Time Seen by Provider: 03/20/19 20:48 Primary Care Provider: [facility] [Provider Group] - Follow up in 1 week Mode of Arrival: Ambulatory Notes: Patient is a 23-year-old female that comes to the emergency department for chief complaint of vomiting. She is G2, P1 at about 6 weeks gestation by last menstrual period, she states she had the same problem with vomiting with her first . She states she had some lower abdominal cramping on the right side yesterday but none today. She denies vaginal bleeding. She denies fever/chills. She vomited 6 times today. She denies any medical history othe rwise. She does not take any daily medications. TRAVEL OUTSIDE OF THE [place] IN LAST 30 DAYS: No - Related Data Allergies/Adverse Reactions: No Known Allergies Allergy (Verified 03/20/19 22:35) Past Medical History - General Information source: Patient - Social History Smoking Status: Former Smoker Frequency of alcohol use: None Drug Abuse: None Lives with: Family Family History: Reviewed & Not Pertinent Patient has suicidal ideation: No Patient has homicidal ideation: No Renal/ Medical History: Denies: Hx Peritoneal Dialysis Surgical Hx: Negative - Immunizations Immunizations up to date: Yes Hx Diphtheria, Pertussis, Tetanus Vaccination: Yes Review of Systems - Review of Systems Constitutional: No symptoms reported EENT: No symptoms reported Cardiovascular: No symptoms reported Respiratory: No symptoms reported Gastrointestinal: See HPI Genitourinary: No symptoms reported Female Genitourinary: See HPI Musculoskeletal: No symptoms reported Skin: No symptoms reported Hematologic/Lymphatic: No symptoms reported Neurological/Psychological: No symptoms reported Physical Exam - Vital signs Vitals: Temp Pulse Resp BP Pulse Ox 98.4 F 72 16 119/68 100 03/20/19 20:23 03/20/19 20:23 03/20/19 20:23 03/20/19 20:23 03/20/19 20:23 - Notes Notes: GENERAL: Alert, interacts well. HEAD: Normocephalic, atraumatic. EYES: Pupils equal, round, and reactive to light. Extraocular movements intact. ENT: Oral mucosa dry, tongue midline. Oropharynx unremarkable. Airway patent. LUNGS: Clear to auscultation bilaterally, no wheezes, rales, or rhonchi. No respiratory distress. HEART: Regular rate and rhythm. No murmur ABDOMEN: Soft, non-tender. Non-distended. No rigidity, distention, or guarding. GENITOURINARY: Deferred EXTREMITIES: Moves all 4 extremities spontaneously. No edema, normal radial and dorsalis pedis pulses bilaterally. No cyanosis. BACK: no cervical, thoracic, lumbar midline tenderness. No saddle anesthesia, normal distal neurovascular exam. Moves all extremities in full range of motion. NEUROLOGICAL: Alert and oriented x3. Normal speech. Cranial nerves II through XII grossly intact. PSYCH: Normal affect, normal mood. SKIN: Warm, dry, normal turgor. No rashes or lesions noted. Course - Re-evaluation Re-evalutation: Patient is alert and well-appearing. Her abdomen is nontender. She does have dry mucous membranes. Vital signs unremarkable. CBC shows mild leukocytosis, nonspecific given patient's exam. Chemistry shows bicarbonate of 20, sodium of 133. Urine shows a lot of ketones. Patient was given IV fluids, nausea medication, after this she started feeling improved, given Pepcid, given p.o. fluids. After the symptoms completely resolved. She states she feels great now. Ultrasound showing intrauterine at 6 weeks and 2 days but no heartbeat is recognized. Small subchorionic hemorrhage. I discussed this at length. Discussed hCG level. Discussed how this could be a miscarriage and this could develop into her passing this after discharge, patient states she was supposed to be seen today, she states she will be seen in close follow-up for a recheck. I discussed Polo Richter in detail. Patient and significant other state understanding and agreement. Patient requesting different options for nausea at home, she was provided with this, she states this is consistent with previous . - Vital Signs Vital signs: Temp Pulse Resp BP Pulse Ox 98.2 F 99 15 103/53 L 99 03/21/19 00:59 03/21/19 00:59 03/21/19 00:59 03/21/19 00:59 03/21/19 00:59 - Laboratory Result Diagrams: 03/20/19 22:55 03/20/19 22:55 Laboratory results interpreted by me: 03/20/19 03/20/19 03/20/19 21:00 22:55 22:55 WBC 13.4 H RBC 3.60 L Hgb 11.4 L Hct 32.6 L Seg Neutrophils % 84.8 H Lymphocytes % 10.3 L Absolute Neutrophils 11.4 H Sodium 133.7 L Carbon Dioxide 20 L Creatinine 0.45 L Beta HCG, Quant 61312.00 H Urine Ketones 80 H Urine Blood SMALL H Ur Leukocyte Esterase TRACE H Discharge - Discharge Clinical Impression: Dehydration, Vomiting affecting Condition: Stable Disposition: HOME, SELF-CARE Additional Instructions: Your ultrasound shows a at 6 weeks 2 days approximately although no heartbeat is seen at this time. The as a result is uncertain. It is possible that we simply did not visualize this, however it is very possible that you will proceed to a miscarriage as we discussed. I recommend a 1 week follow- up with the [facility] referral listed below. Call tomorrow to set this up. Your ultrasound ultrasound also shows a small subchorionic hemorrhage, this could be why you had cramping, recommendation is pelvic rest (avoid significant physical activity, heavy lifting, sexual intercourse, etc. until cleared by [facility]). For the nausea and vomiting you have been provided with Reglan, you can take this or alternatively you can take likely just. You can also take the Pepcid to help with upper abdominal inflammation. Start with clear fluids and bland food. Return if you worsen including heavy bleeding, severe pain, dizziness, passing out, fever, uncontrolled vomiting, or any other concerning symptoms. Prescriptions: Doxylamine Succinate/Vit B6 [Sheela Zavaleta 10-10 mg Tablet] 2 each PO ASDIR PRN #60 tablet. PRN Reason: Famotidine [Pepcid 20 mg Tablet] 20 mg PO BID #12 tablet Metoclopramide HCl [Reglan] 5 mg PO ASDIR PRN #30 tablet PRN Reason: Referrals: [facility] [Provider Group] - Follow up in 1 week
[2019-03-20 23:21] LABS: ABSOLUTE BASOPHILS # (AUTO) 0.1 10^3/uL (0.0-0.2); ABSOLUTE LYMPHOCYTES (AUTO) 1.4 10^3/uL (0.5-4.7); ABSOLUTE MONOCYTES (AUTO) 0.6 10^3/uL (0.1-1.4); ABSOLUTE NEUT (AUTO) 11.4 10^3/uL (1.7-8.2); BASOPHILS % (AUTO) 0.4 % (0-2); EOSINOPHILS % (AUTO) 0.3 % (0-6); HEMATOCRIT 32.6 % (36.0-47.0); HEMOGLOBIN 11.4 g/dL (12.0-15.5); LYMPHOCYTES % (AUTO) 10.3 % (13-45); MEAN CORPUSCULAR HEMOGLOBIN 31.6 pg (27.0-33.4); MEAN CORPUSCULAR HGB CONC 34.9 g/dL (32.0-36.0); MEAN CORPUSCULAR VOLUME 91 fl (80-97); MONOCYTES % (AUTO) 4.2 % (3-13); PLATELET COUNT 262 10^3/uL (150-450); SEGMENTED NEUTROPHILS % (AUTO) 84.8 % (42-78); TOTAL CELLS COUNTED % (AUTO) 100 %; WHITE BLOOD COUNT 13.4 10^3/uL (4.0-10.5)
[2019-03-20 23:36] LABS: ALANINE AMINOTRANSFERASE 21 U/L (9-52); ALBUMIN 3.8 g/dL (3.5-5.0); ALKALINE PHOSPHATASE 45 U/L (38-126); ANION GAP 8 (5-19); ASPARTATE AMINO TRANSFERASE 19 U/L (14-36); BILIRUBIN,DIRECT 0.1 mg/dL (0.0-0.4); BILIRUBIN,TOTAL 0.9 mg/dL (0.2-1.3); BLOOD UREA NITROGEN 9 mg/dL (7-20); CALCIUM 8.7 mg/dL (8.4-10.2); CARBON DIOXIDE 20 mmol/L (22-30); CHLORIDE 106 mmol/L (98-107); GLUCOSE 83 mg/dL (75-110); LIPASE 99.4 U/L (23-300); POTASSIUM 3.8 mmol/L (3.6-5.0); SODIUM 133.7 mmol/L (137-145); TOTAL PROTEIN 6.5 g/dL (6.3-8.2)
[2019-03-21] MEDS ORDERED: FAMOTIDINE 20 MG TABLET PO ONE (00:06)
[2019-03-21 02:17] VITALS: BP 103/53
== END 2019-03-21 00:59 | disposition home or self-care (01) ==
LOC: ER 19:58
DX: O21.9 Vomiting of pregnancy, unspecified (principal); O26.891 Other specified pregnancy related conditions, first trimester; E86.0 Dehydration; R10.30 Lower abdominal pain, unspecified; Z3A.01 Less than 8 weeks gestation of pregnancy; Z87.891 Personal history of nicotine dependence
CPT/HCPCS: 99284; 96361; 96374; 96375; 36415; 82962; 84702; 83690; 85025; 80053; 81001; 76817; J1200; J0780; J7030